=== PATIENT | female | born 1990 | race Asian ===

== ENCOUNTER 2024-04-14 06:12 | Outpatient (REF) | payer OTHER, SELFPAY ==
--- NOTE | ~2024-04-14 | US_ITS ---
EXAMINATION: US PELVIS CLINICAL INFORMATION: Menorrhagia. LMP 04/07/2024. COMPARISON: None available. TECHNIQUE: Ultrasound of the pelvis is performed using transabdominal transducer. The patient refused transvaginal evaluation. FINDINGS: Anteverted uterus with normal morphology measuring 7 x 3.3 x 4.8 cm. No uterine lesion. Homogeneous endometrium measuring 0.3 cm in thickness. No focal endometrial abnormality. Normal ovarian morphology with symmetric size. The right ovary measures 3.2 x 1.6 x 2.2 cm, 5.7 mL. The left ovary measures 3.3 x 2.4 x 2.4 cm, 9.8 mL. No adnexal mass. No free fluid. US/US pelvic complete IMPRESSION: Within the limitations of transabdominal only evaluation, no significant abnormality is seen. Electronically signed by: Tiki Caruso MD 04/14/2024 03:32 PM [id number]
== END 2024-04-14 06:13 | disposition home or self-care (01) ==
LOC: HO.UMASIMG 06:12
PROVIDERS: Visit Provider Nurse Practitioner Women's Health
DX: N92.0 Excessive and frequent menstruation with regular cycle (principal)
CPT/HCPCS: 76856